=== PATIENT | female | born 1990 | race African-American/Black ===

== ENCOUNTER 2024-01-27 17:26 | Emergency (ER) | payer OTHER, SELFPAY ==
[2024-01-27 18:59] VITALS: BP 103/75; PULSE 75; RESP 16; TEMP 36.3; O2SAT 99; BMI 29.5
--- NOTE | 2024-01-27 18:59 | ED.GENADULT ---
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 Related Data Previous Rx's ?Medication ?Instructions ?Recorded amoxicillin 875 mg-potassium 1 tab PO BID 10 days #20 tabs 01/28/24 clavulanate 125 mg tablet Allergies Allergy/AdvReac Type Severity Reaction Status Date / Time No Known Allergies Allergy Verified 01/27/24 19:00 Review of Systems Review of Systems: Pertinent positives and negatives as stated in HPI [facility] Past Medical History Source: nursing notes reviewed Social History Social History Advance Directives: No Advance Directives Information Provided: No Physical Exam ED Vital Signs: Vital Signs - 24 hr 01/27/24 18:59 01/28/24 00:09 Temperature 97.3 F 98.0 F Pulse Rate 75 70 Respiratory Rate 16 16 Blood Pressure 103/75 134/87 Pulse Oximetry 99 97 Oxygen Delivery Method Room Air Room Air BMI result Body Mass Index 29.5 VITAL SIGNS: Reviewed. GENERAL: Well developed, well nourished, in no acute distress. HEAD: Normocephalic/atraumatic EYES: PERRLA, EOMI EARS: Ext canals without abnormality, TMs non-bulging and non-erythematous NOSE: Nares patent bilateral OROPHARYNX: no oral lesions noted, posterior pharynx clear and non-erythematous with noted tonsillar enlargement/erythema/exudates NECK: Supple, +adenopathy LUNGS: Normal breath sounds. No adventitious sounds or accessory muscle use. SpO2<97> CARDIOVASCULAR: Regular rate and rhythm without noted murmurs ABDOMEN: Soft, non-tender, non-distended with bowel sounds. MUSCULOSKELETAL: No tenderness, deformities, or effusions noted on gross inspection. EXTREMITIES: No cyanosis, clubbing or edema. SKIN: Inspection of the skin reveals no rashes NEUROLOGIC: Alert and oriented x 4. Strength and sensation to light touch were grossly intact x 4. Course Course Course Narrative: This is a rapid medical exam performed by Tony Ramires NP: Additional HPI, ROS, PE not included below will be deferred to primary provider. Patient is a 33-year-old Mexican speaking female presenting to the ED with complaint of nasal congestion and sinus pain for one week. Denies cough, sore throat, fevers. Plan: viral swabs Medical Decision Making Medical Decision Making [facility] Narrative: 33-year-old female with history and clinical presentation, possible viral illness/strep pharyngitis. I reviewed results and viral testing for influenza/RSV/COVID-19 is negative, but patient is positive for strep pharyngitis and was treated with combination analgesics and initial antibiotics and then discharged on remaining course. Differential Diagnosis Differential Diagnoses: The differential diagnosis associated with the presentation includes Please see the discussion above Admission/Observation Consideration of admission/observation: Escalation of care including admission/observation considered Please see the discussion above Lab Data [facility] Lab Attestation statement: I reviewed the patient's lab results. Please see the discussion above Labs: Lab Results 01/27/24 Range/Units 21:39 Influenza Type A (PCR) NEGATIVE (Negative) Influenza Type B (PCR) NEGATIVE (Negative) RSV RNA Qual (PCR) NEGATIVE (Negative) SARS-CoV-2 RNA (RT-PCR) NEGATIVE (Negative) S. pyogenes GrpA DAMIÁN Positive A (Negative) Critical Care Time Critical Care Time Critical Care Time: Yes Total Critical Care Time: 30 Attestation: I personally attest to this time spent taking care of the patient. Discharge Plan Discharge Clinical Impression: Strep pharyngitis Patient Disposition: Home, Self-Care Instructions: Strep Throat (ED) Additional Instructions: 1. Complete the entire course of antibiotics as prescribed. 2. I recommend [id number] Tylenol/ibuprofen as needed for pain control. May consider [id number] Cepacol for sore throat. 3. Return to the ER for any worsening symptoms. Prescriptions: New amoxicillin-pot clavulanate 875-125 mg tablet 1 tab PO BID 10 Days Qty: 20 0RF Print Language: [place] Creole
[2024-01-27 21:54] LABS: IDNOW Serial# 08D9AD1C; Strep A Nucleic Acid Positive (Negative)
[2024-01-27 22:21] LABS: Influenza A PCR NEGATIVE (Negative); Influenza B PCR NEGATIVE (Negative); Resp Syncy Virus RNA Qual PCR NEGATIVE (Negative); SARS COV2 PCR INHOUSE NEGATIVE (Negative)
[2024-01-28 00:09] VITALS: BP 134/87; PULSE 70; RESP 16; TEMP 36.7; O2SAT 97
[2024-01-28] MEDS: Ibuprofen 400 MG TABLET PO (01:15)
[2024-01-28] MEDS: Amoxicillin/Potassium Clav 875 MG TABLET PO (01:15)
[2024-01-28] MEDS: Acetaminophen 325 MG TABLET 975 MG PO (01:15)
[2024-01-28 01:20] VITALS: BP 134/87; PULSE 70; RESP 16; TEMP 36.7; O2SAT 97
== END 2024-01-28 01:27 | disposition home or self-care (01) ==
PROVIDERS: Emergency Provider Student in an Organized Health Care Education/Training Program
DX: J02.0 Streptococcal pharyngitis (principal)
CPT/HCPCS: 0241U; 87651; 99283; 99284